=== PATIENT | male | born 1935 | race Caucasian/White ===

== ENCOUNTER → 2018-03-29 | Outpatient (CLI) | payer OTHER, MEDICARE | LOC: BMCIMAGING 09:00 | DX: I77.89 Other specified disorders of arteries and arterioles (principal); R09.89 Other specified symptoms and signs involving the circulatory and respiratory systems; R42 Dizziness and giddiness; I25.10 Atherosclerotic heart disease of native coronary artery without angina pectoris; I10 Essential (primary) hypertension; F17.210 Nicotine dependence, cigarettes, uncomplicated; Z95.5 Presence of coronary angioplasty implant and graft ==

== ENCOUNTER → 2018-04-05 | Outpatient (CLI) | payer OTHER, MEDICARE ==
[~2018-04-05] MED LIST: IOPAMIDOL (ISOVUE 370) 100 ML BTL IV ONE
== END ==
LOC: FIMAGING 14:50
DX: I65.23 Occlusion and stenosis of bilateral carotid arteries (principal)
CPT/HCPCS: 70498; Q9967

== ENCOUNTER 2019-02-28 16:49 | Inpatient (IN) | payer OTHER, MEDICARE ==
--- NOTE | 2019-02-28 17:08 | EDPHY ---
H & P Stated Complaint: R calf pain and SOB x5D. Hx COPD. Denies CP. Time Seen by Provider: 02/28/19 17:06 HPI/ROS: Chief complaint: Right calf pain, Difficulty breathing History of present illness: This is an 83-year-old male with a history of COPD and cardiovascular disease who presents to the emergency department for right calf pain and trouble breathing. Patient reports approximately 5 days ago he developed a right calf pain. It has been progressively worsening. He has associated redness and swelling into the leg. He has subsequently developed the trouble breathing. Symptoms have been progressively worsening. He did go see his primary care doctor today who sent him to the emergency room. He denies associated signs or symptoms including no fevers or cold symptoms. Although he has had COPD exacerbations in the past this does not feel similar to them. He normally uses oxygen at night but does not need it during the day. Review of systems: A 10 point review of systems was obtained and other than described above was negative. - Personal History Current Tetanus/Diphtheria Vaccine: Yes - Medical/Surgical History Hx Asthma: No Hx Chronic Respiratory Disease: Yes Hx Diabetes: No Hx Cardiac Disease: Yes Hx Renal Disease: No Hx Cirrhosis: No Hx Alcoholism: No Hx HIV/AIDS: No Hx Splenectomy or Spleen Trauma: No Other PMH: PMH: High Cholesterol, HTN, Heart Stent, COPD - Social History Smoking Status: Heavy smoker - Physical Exam Exam: General Appearance: Alert, nontoxic, easily conversant. Eyes: Pupils equal and round no pallor or injection. ENT, Mouth: Mucous membranes moist. Respiratory: Patient is talking in full sentences. There is no use of accessory muscles. Diffuse rhonchi and wheezing throughout the lung brown. Cardiovascular: Regular rate and rhythm. Gastrointestinal: Abdomen is soft and non tender, no masses, bowel sounds normal. Neurological: Alert and oriented. Skin: Erythema and edema to the right lower extremity. Musculoskeletal: Neck is supple non tender. Extremities are symmetrical, full range of motion. Psychiatric: Patient is oriented X 3, there is no agitation. Constitutional: Initial Vital Signs Temperature (C) 37.6 C 02/28/19 16:54 Heart Rate 102 H 02/28/19 16:54 Respiratory Rate 18 02/28/19 16:54 Blood Pressure 132/59 H 02/28/19 16:54 O2 Sat (%) 82 L 02/28/19 16:54 O2 Delivery Mode Room Air O2 (L/minute) 3 Allergies/Adverse Reactions: Penicillins Allergy (Mild, Verified 02/28/19 20:05) Home Medications: Medication Instructions Recorded Clopidogrel Bisulfate [Plavix (*)] 75 mg PO DAILY 08/28/16 Furosemide [Lasix 40 MG (*)] 40 mg PO DAILY 08/28/16 Lisinopril [Zestril 40 mg (*)] 40 mg PO DAILY 08/28/16 Metoprolol Succinate Xr [Toprol Xl 75 mg PO DAILY 08/28/16 50 mg (*)] PARoxetine HCL [Paxil 30mg (*)] 30 mg PO DAILY 08/28/16 amLODIPine BESYLATE [Norvasc 5 mg 5 mg PO DAILY 08/28/16 (*)] Atorvastatin Calcium [Lipitor 40 40 mg PO DAILY 02/28/19 mg (*)] Fluticasone/Umeclidin/Vilanter 1 each IH DAILY 02/28/19 [Trelegy Ellipta 100-62.5-25] Ipratropium 0.03% Nasal [Atrovent 2 sprays EACHNARE BID 02/28/19 0.03% Nasal (*)] Multivitamins [Multivitamin (*)] 1 each PO DAILY 02/28/19 predniSONE 5 mg PO EVERY OTHER DAY 02/28/19 Medical Decision Making - Diagnostics Imaging Results: Imaging Impressions Chest/Thorax CTA 02/28/19 17:15 Impression: 1. Negative CT examination of the chest for acute pulmonary thromboembolic disease. 2. 16 mm spiculated right middle lobe nodule suspicious for primary lung malignancy. 3. Noncalcified focus of pleural thickening involving the right major fissure, indeterminate for benign or malignant etiology. 4. Endobronchial obstructive changes within the right lower lobe bronchus, mass versus retained secretions. 5. Abnormal right paraesophageal and right hilar lymphadenopathy, potentially metastatic. 6. Underlying emphysema. 7. Bilateral lower lobe atelectasis. 8. Probable fusiform adrenal hyperplasia bilaterally. Results called to Joni Concepcion PA-C, at 6:30 PM. Results called to [ ] at the time of the interpretation.. Imaging: Discussed imaging studies w/ call taker Radiologist ED Course/Re-evaluation: Patient is discussed with my secondary supervising physician Dr. Isa Birch. Patient presents to the emergency department with right foot and leg pain as well as shortness of breath and hypoxia. Evaluation ultimately reveals he appears to have a right leg cellulitis. I also suspected COPD exacerbation. He also appears to have new onset lung cancer. No thromboembolic disease noted at this time. No evidence of sepsis, lactate is normal. He is given a DuoNeb and Solu-Medrol for COPD and started on Ancef. He is admitted to the hospitalist service under the care of Dr. Radha Garcia. Dr. Shan Jacobsen of Hematology/Oncology will consult on this patient for new diagnosis of lung cancer. The plan has been discussed with the patient voiced understanding and agreement with it. Differential Diagnosis: Included but not limited to DVT, PE, COPD exacerbation, pneumonia, cellulitis, pneumothorax, malignancy - Data Points Laboratory Results: Laboratory Results 02/28/19 17:30 02/28/19 17:30 02/28/19 02/28/19 02/28/19 18:29 17:36 17:30 WBC RBC Hgb POC Hgb 15.0 gm/dL gm/dL (13.7-17.5) Hct POC Hct 44 % % (40-51) MCV MCH MCHC RDW Plt Count MPV Neut % (Auto) Lymph % (Auto) [place] % (Auto) Eos % (Auto) Baso % (Auto) Nucleat RBC Rel Count Absolute Neuts (auto) Absolute Lymphs (auto) Absolute Monos (auto) Absolute Eos (auto) Absolute Basos (auto) Absolute Nucleated RBC Immature Gran % Immature Gran # PT 13.7 SEC SEC (12.0-15.0) INR 1.09 (0.83-1.16) APTT 36.9 SEC SEC (23.0-38.0) POC Sodium 139 mEq/L mEq/L (135-145) Sodium POC Potassium 3.4 mEq/L mEq/L (3.3-5.0) Potassium POC Chloride 99 mEq/L mEq/L (97-110) Chloride Carbon Dioxide POC Total CO2 28 mEq/L mEq/L (22-31) Anion Gap POC BUN 26 mg/dL H mg/dL (7-23) BUN Creatinine POC Creatinine 0.9 mg/dL mg/dL (0.7-1.3) Estimated GFR Glucose POC Glucose 108 mg/dL H mg/dL (70-100) Calcium Total Bilirubin 0.5 mg/dL mg/dL (0.1-1.4) POC Troponin I NT-Pro-B Natriuret Pep 02/28/19 02/28/19 02/28/19 17:30 17:30 17:29 WBC 11.25 10^3/uL H 10^3/uL (3.80-9.50) RBC 4.41 10^6/uL 10^6/uL (4.40-6.38) Hgb 14.4 g/dL g/dL (13.7-17.5) POC Hgb Hct 42.1 % % (40.0-51.0) POC Hct MCV 95.5 fL fL (81.5-99.8) MCH 32.7 pg pg (27.9-34.1) MCHC 34.2 g/dL g/dL (32.4-36.7) RDW 13.4 % % (11.5-15.2) Plt Count 159 10^3/uL 10^3/uL (150-400) MPV 9.7 fL fL (8.7-11.7) Neut % (Auto) 80.7 % H % (39.3-74.2) Lymph % (Auto) 7.5 % L % (15.0-45.0) [place] % (Auto) 8.5 % % (4.5-13.0) Eos % (Auto) 2.3 % % (0.6-7.6) Baso % (Auto) 0.4 % % (0.3-1.7) Nucleat RBC Rel Count 0.0 % % (0.0-0.2) Absolute Neuts (auto) 9.08 10^3/uL H 10^3/uL (1.70-6.50) Absolute Lymphs (auto) 0.84 10^3/uL L 10^3/uL (1.00-3.00) Absolute Monos (auto) 0.96 10^3/uL H 10^3/uL (0.30-0.80) Absolute Eos (auto) 0.26 10^3/uL 10^3/uL (0.03-0.40) Absolute Basos (auto) 0.04 10^3/uL 10^3/uL (0.02-0.10) Absolute Nucleated RBC 0.00 10^3/uL 10^3/uL (0-0.01) Immature Gran % 0.6 % % (0.0-1.1) Immature Gran # 0.07 10^3/uL 10^3/uL (0.00-0.10) PT INR APTT POC Sodium Sodium 137 mEq/L mEq/L (135-145) POC Potassium Potassium 3.6 mEq/L mEq/L (3.5-5.2) POC Chloride Chloride 100 mEq/L mEq/L (97-110) Carbon Dioxide 28 mEq/l mEq/l (22-31) POC Total CO2 Anion Gap 9 mEq/L mEq/L (6-14) POC BUN BUN 29 mg/dL H mg/dL (7-23) Creatinine 0.9 mg/dL mg/dL (0.7-1.3) POC Creatinine Estimated GFR > 60 Glucose 105 mg/dL H mg/dL (70-100) POC Glucose Calcium 8.9 mg/dL mg/dL (8.5-10.4) Total Bilirubin POC Troponin I 0.00 ng/mL ng/mL (0.00-0.08) NT-Pro-B Natriuret Pep 841 pg/mL H pg/mL (0-450) Medications Given: Discontinued Medications Albuterol/Ipratropium (Duoneb) 3 ml IH EDNOW ONE Stop: 02/28/19 18:41 Last Admin: 02/28/19 19:13 Dose: 3 ml Cefazolin Sodium/Dextrose (Ancef) 100 mls @ 200 mls/hr IV EDNOW ONE PRN Reason: Protocol Stop: 02/28/19 19:06 Last Admin: 02/28/19 19:13 Dose: 100 mls Methylprednisolone Sodium Succinate (Solu-Medrol) 125 mg IVP EDNOW ONE Stop: 02/28/19 18:41 Last Admin: 02/28/19 19:13 Dose: 125 mg Point of Care Test Results: Chemistry 02/28/19 02/28/19 17:36 17:29 POC Sodium 139 mEq/L mEq/L (135-145) POC Potassium 3.4 mEq/L mEq/L (3.3-5.0) POC Chloride 99 mEq/L mEq/L (97-110) POC Total CO2 28 mEq/L mEq/L (22-31) POC BUN 26 mg/dL H mg/dL (7-23) POC Creatinine 0.9 mg/dL mg/dL (0.7-1.3) POC Glucose 108 mg/dL H mg/dL (70-100) POC Troponin I 0.00 ng/mL ng/mL (0.00-0.08) ISTAT H&H 02/28/19 17:36 POC Hgb 15.0 gm/dL gm/dL (13.7-17.5) POC Hct 44 % % (40-51) Departure - Departure Disposition: [facility] In[facility] Acute Clinical Impression: COPD exacerbation Lung cancer Qualifiers: Laterality: right Lung location: middle lobe of lung Qualified Code(s): C34.2 - Malignant neoplasm of middle lobe, bronchus or lung Cellulitis Qualifiers: Site of cellulitis: extremity Site of cellulitis of extremity: lower extremity Laterality: right Qualified Code(s): L03.115 - Cellulitis of right lower limb Condition: Fair
[2019-02-28 17:45] LABS: PLATELET COUNT 159 10^3/uL (150-400)
[2019-02-28] MEDS ORDERED: IOPAMIDOL (ISOVUE 370) 100 ML BTL IV ONE (17:50)
[2019-02-28 18:37] LABS: INR 1.09 (0.83-1.16); PROTIME(PATIENT) 13.7 SEC (12.0-15.0)
[2019-02-28] MEDS ORDERED: ceFAZolin 2 GM/DEXTROSE 100 ML IV ONE (18:37)
[2019-02-28] MEDS ORDERED: methylPREDNISolone SOD SUCC 125 MG/2 ML VIAL IVP ONE (18:40)
[2019-02-28] MEDS ORDERED: IPRATROPIUM/ALBUTEROL 3 ML DEYVIAL IH ONE (18:40)
[2019-02-28] MEDS ORDERED: ONDANSETRON 4 MG/2 ML VIAL IVP PRN (19:28)
[2019-02-28] MEDS ORDERED: ACETAMINOPHEN 325 MG TAB PO PRN (19:28)
[2019-02-28] MEDS ORDERED: ONDANSETRON DISINTEGRATING 4 MG TAB PO PRN (19:28)
--- NOTE | 2019-02-28 21:13 | CPEKG ---
Test Reason : OPEN Blood Pressure : / mmHG Vent. Rate : 095 BPM Atrial Rate : 096 BPM P-R Int : 189 ms QRS Dur : 089 ms QT Int : 364 ms P-R-T Axes : 077 051 072 degrees QTc Int : 458 ms Sinus rhythm Confirmed by Viki Birch ([id number]) on 02/28/2019 9:11:06 PM Referred By: VIKI BIRCH Confirmed By:Viki Birch
[2019-02-28] MEDS ORDERED: IPRATROPIUM/ALBUTEROL 3 ML DEYVIAL IH PRN (21:52)
--- NOTE | 2019-02-28 22:48 | GHP ---
[f rep st] HISTORY AND PHYSICAL DATE OF ADMISSION: 02/28/2019 CHIEF COMPLAINT: Right leg cellulitis, shortness of breath. HISTORY OF PRESENT ILLNESS: An 83-year-old male with tobacco dependence, COPD, chronic hypoxemic respiratory failure on 2.5 L at night, presents with right foot calf pain and trouble breathing. He developed right calf pain 5 days ago. When he applied pressure on his foot, it felt like glass. He has noticed that it is more swollen and red. Denies fevers, chills, or sweats. Per ER notes, patient reported shortness of breath, but it was difficult to get this story from the patient. says over the last couple days he has been more dyspneic with walking. Denies chest pain. Has a chronic cough with yellow sputum. This has not changed. REVIEW OF SYSTEMS: I completed a 10-point review of systems, negative except as noted in HPI. PAST MEDICAL HISTORY: COPD, hypertension, CAD, prior stents. PAST SURGICAL HISTORY: Cardiac stents. FAMILY HISTORY: Dad with [place]. Mother with [place]. SOCIAL HISTORY: Lives in [place] with his . Smokes a pack a day, for 60 years, still smoking. 2-3 beers a day. Used to work in real estate. HOME MEDICATIONS: Multivitamin, Trelegy Ellipta 1 inhaled daily, Norvasc 5 mg daily, Atrovent, lisinopril 40 daily, Lasix 40 mg daily, Plavix 75 daily, paroxetine 30, metoprolol 75 daily, atorvastatin 40. ALLERGIES: Penicillin. PHYSICAL EXAMINATION: VITAL SIGNS: Temperature 36.8, blood pressure 123/67, heart rate is in the 90s, respirations 18, 82% on room air, 91 on 2 L. GENERAL : Overweight male in no acute distress. HEENT: PERRLA. Moist mucous membranes. CV: Mild expiratory wheeze. No crackles. ABDOMEN: Obese, soft, nontender. : No Romero. MUSCULOSKELETAL: Right leg with significant erythema from foot to knee. There is a sloughed-off ulcer dorsum of foot, appears warm, tender to touch, swollen. Serosanguineous drainage. NEURO: 2 through 12 intact. PSYCH: Alert and oriented x3. LABORATORY DATA: WBC 11, hemoglobin 14, hematocrit 42, platelets 159. Coags within normal. Lactate 0.9. Sodium 139, potassium 3.4, chloride 99, BUN 26, creatinine 0.9, glucose 108. BNP is 841. Troponin 0.00. CTA: Negative PE. 16 mm spiculated right middle lobe nodule, noncalcified focus of pleural thickening involving the right major fissure, abnormal right paraesophageal and right hilar lymphadenopathy, underlying emphysema. ASSESSMENT AND PLAN: 1. Right leg cellulitis: I will treat with Ancef 2 g q.8 given weight, elevate. 2. COPD: Per my interview, patient denies progressive shortness of breath. says otherwise. Will add DuoNeb, increase home steroid from 5 to 40 mg for 5 days. Does not warrant antibiotics given unchanged sputum production. He is stable on his home oxygen. 3. Chronic hypoxemic respiratory failure, uses at night but suspect he is actually low during the day. 4. Hypertension: Resume home medications. 5. Coronary artery disease: Statin, beta yeimy. 6. Deep venous thrombosis prophylaxis: Lovenox. 7. Diet: Regular. DISPOSITION: Inpatient admission for acute right leg cellulitis warranting IV antibiotics. /[id number]/MODL MTDD
[2019-03-01] MEDS: ceFAZolin 2 GM/DEXTROSE 100 ML IV SCH ×3 (03:09→18:33)
[2019-03-01] MEDS ORDERED: FUROSEMIDE 40 MG TAB PO SCH (09:00)
--- NOTE | 2019-03-01 09:03 | HOSPPROG ---
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 with suspected pulmonary hypertension (all new diagnosis for him at this time) * Spiculated lung lesion noted and right upper lobe on CT scan suspicious for cancer (new diagnosis for him today) * Pre renal azotemia likely due to poor cardiac perfusion of the kidneys from Pulmonary hypertension right heart failure * History of coronary disease * Hypertension PLANS: * I reviewed all the above with the patient in detail * Continue antibiotics and leg elevation, wound care * Will begin IV diuretics; will need to follow electrolytes on that * 2 g sodium diet * Long discussion with the patient today regarding preventive care for stasis dermatitis/ulcers/infection * Will consult pulmonology to consider bronchoscopy for the right lung lesion; if they can't get to that part of lung will need to consider other diagnostic approaches - this is very central in the lung and may not be very minimal to needling, could need a surgery * Strongly recommend that he have Dr. Austin refer him to outpatient pulmonary rehabilitation clinic Seen by me on hospitalist rounds as well as multidisciplinary rounds today SUBJECTIVE: Leg feels better today Says his breathing feels as usual OBJECTIVE Vitals reviewed: Mild occasional high blood pressure otherwise all stable without fever Exam: alert oriented skin warm dry color ok resps not labored lungs diminished breath sounds with diffuse expiratory wheeze heart regular abd soft nondistended nontender, bowel sounds present limbs warm, significant pitting edema present in both legs; there is still notable cellulitis of the right leg with no decrease in the area involved as of yet iv site ok Microbiology: Blood cultures pending Lab data: Imaging: I have reviewed images from his CT chest done yesterday, there is an obvious spiculated lung lesion in the midportion of the right upper lobe, some large airways disease and emphysema are noted as well as some basilar atelectasis Objective: Vital Signs Temp Pulse Resp BP Pulse Ox 36.4 C 94 16 129/65 H 94 03/01/19 08:34 03/01/19 08:34 03/01/19 08:34 03/01/19 08:34 03/01/19 08:34 02/28/19 03/01/19 03/02/19 06:59 06:59 06:59 Intake Total 565 Balance 565 PT 13.7 SEC (12.0-15.0) 02/28/19 18:29 INR 1.09 (0.83-1.16) 02/28/19 18:29 ICD10 Worksheet Patient Problems: Problems Problem Status Onset COPD exacerbation Acute Cellulitis Acute Lung cancer Acute
[2019-03-01] MEDS: ENOXAPARIN 40 MG/0.4 ML SYR SC SCH (09:22)
[2019-03-01] MEDS: LISINOPRIL 40 MG TAB PO SCH (09:23)
[2019-03-01] MEDS: amLODIPine BESYLATE 5 MG TAB PO SCH (09:23)
[2019-03-01] MEDS: MULTIVITAMINS 1 EACH TAB PO SCH (09:23)
[2019-03-01] MEDS: predniSONE 20 MG TAB PO SCH (09:23)
[2019-03-01] MEDS: CLOPIDOGREL BISULFATE 75 MG TAB PO SCH (09:24)
[2019-03-01] MEDS: ATORVASTATIN CALCIUM 40 MG TAB PO SCH (09:24)
[2019-03-01] MEDS: METOPROLOL SUCCINATE XR 50 MG TAB PO SCH (09:24)
[2019-03-01] MEDS ORDERED: FUROSEMIDE 20 MG/2 ML VIAL IVP ONE (09:29)
--- NOTE | 2019-03-01 09:33 | ASMTCASEMG ---
Living Arrangements What is your living Answers: With Spouse arrangement? Who do you live with? Type Of Residence What kind of residence do Answers: House you live in? Discharge Plan Comments Coordination Status Comments Notes: Patient is an 83yo male, pack a day smoker for 60 years with hx of COPD, hypertension, CAD, prior stents. Patient presents with right leg cellulitis and shortness of breath. He is being admitted for hypertension, chronic hypoxemic respiratory failure, COPD, CAD, DVT, and right leg cellulitis requiring IV ABX. No therapies ordered at this time. Patient has PCP: Josy Sheridan. D/C plan TBD. CM will follow. Date Signed: 03/01/2019 09:31 AM Electronically Signed By:Stephenie Mayberry LCSW
--- NOTE | 2019-03-01 11:54 | GCON ---
[f rep st] CONSULTATION MEDICAL ONCOLOGY CONSULTATION Patient is an 83-year-old male with a long smoking history who was admitted with a complaint of some increased shortness of breath, and right foot and calf pain. He was felt to have a cellulitis of his right foot and calf, and a CT angiogram showed a 16 mm spiculated right middle lobe nodule suspicious for a primary lung malignancy. There were endobronchial obstructive changes within the right lower lobe bronchus, felt to be either a mass versus retained secretion, and there were some abnormal right paraesophageal and right hilar lymphadenopathy noted, there was a 17 mm lymph node in the right hilum and there was an enlarged right paraesophageal lymph node below the robin measuring 19 mm. He was placed on Ancef and his foot is feeling better. PAST MEDICAL HISTORY: Significant for COPD, hypertension, coronary artery disease with prior stents. He has a 60 pack-year smoking history and continues to smoke. MEDICATIONS ON ADMISSION: Included Norvasc, Atrovent, Lasix, Plavix, paroxetine , metoprolol, and atorvastatin. FAMILY HISTORY: Noncontributory. He is retired from [employer]. There is a history of coronary artery disease. REVIEW OF SYSTEMS: Weight has actually been increased. He denies any pain. Otherwise, negative for 10 systems, except as discussed in the HPI. PHYSICAL EXAMINATION: GENERAL: Currently, he is resting comfortably. VITAL SIGNS: Blood pressure 129/65, O2 sat is 94%, temperature is 97.5. HEENT: He is not icteric. I detect no adenopathy. LUNGS: Show somewhat diminished breath sounds. CARDIAC: Normal S1, S2 without murmurs, clicks, or added sounds. ABDOMEN: Shows normal bowel sounds. Nontender. EXTREMITIES: Show no edema. LABORATORY DATA: White count is 11,000, hemoglobin 14.4, platelets a 159,000, hematocrit 42.1. Chemistry panel is generally unremarkable. Transaminases as of a few months ago are unremarkable. IMPRESSION: Patient with long smoking history and a spiculated lung lesion, concerning for primary lung cancer. There may also be some suspicious hilar and mediastinal lymph nodes. PLAN: For Pulmonary consultation regarding possible bronchoscopy, I have also asked Radiology to consider whether or not this is very central lesion surrounded by blood vessels would be amenable to a CT direct needle biopsy if we need a diagnosis. I think a PET scan would be reasonable as an outpatient. Our service will follow with you. /[id number]/MODL MTDD
--- NOTE | 2019-03-01 14:58 | PDMN ---
Medical Necessity Medical necessity: Pt meets IP criteria per MD & MCG M-70; est los >2 mn for eval/tx of acute R leg cellulitis, acute on chronic COPD exacerbation & new diagnosis CHF w/suspected pulmonary htn; lung lesion suspicious of cancer noted on CT; admit for further workup/monitoring, IV abx, IV diuretics & respiratory supportive care; per progress note & order 02/28/19
[2019-03-01] MEDS: FUROSEMIDE 40 MG/4 ML VIAL IVP SCH (15:11)
--- NOTE | 2019-03-01 18:51 | GCON ---
[f rep st] CONSULTATION PULMONARY CONSULTATION DATE OF CONSULTATION: 03/01/2019 REASON FOR CONSULTATION: Lung nodules in a smoker, COPD. HISTORY: The patient is a very pleasant 83-year-old gentleman with a long history of tobacco abuse. He continues to smoke actively. He has a history of known COPD and is followed by Dr. Bailon in [facility]. He was admitted to the hospital yesterday with cellulitis of the right lower extremity. A CT angiogram was done for shortness of breath. This showed a nodule in the right middle lobe and a nod ule with peribronchial obstructive changes in the right lower lobe consistent with a small mass. The se changes are worrisome for malignancy. In addition, there is some right hilar and paraesophageal l ymphadenopathy under 2 cm. Since admission, he has felt better with treatment for his cellulitis. Associated edema has been dec reasing. He states that he does not feel he has been particularly increasingly short of breath latel y. Apparently, this was reported by his . He does feel today, he is having a more difficult flavia e breathing because he has not been using the nasal ipratropium bromide. PAST MEDICAL HISTORY: Remarkable for COPD, ongoing tobacco abuse, systemic hypertension, coronary ar [place] disease with stenting in the past. OUTPATIENT MEDICATIONS: Include: Nasal Atrovent, Trelegy Ellipta one inhalation per day, lisinopril , Lasix, Plavix, Paxil, metoprolol, prednisone 5 mg every other day, and Lipitor. He has been receiv ing DuoNeb in the hospital, but only p.r.n. SOCIAL HISTORY: The patient is . Continues to smoke. FAMILY HISTORY: Noncontributory. REVIEW OF SYSTEMS: A 10-point review of systems is negative except as mentioned in the HPI. PHYSICAL EXAMINATION: GENERAL: Reveals a pleasant gentleman who is lying comfortably in bed. Feet are elevated. The right leg is wrapped. Nasal cannula oxygen is in place at 2 L. Saturations are 9 5%. He is not in any respiratory distress. HEENT: Unremarkable for lymphadenopathy or thyromegaly. There is no obvious jugular venous distention. PULMONARY: The chest reveals decreased breath soun ds bilaterally with a prolonged expiratory phase. Expiratory wheezes are heard bilaterally. He is n ot tight. With cough, there is some central bronchial congestion. HEART: Regular in rate and rhyth m. Heart tones are distant. No obvious gallop is noted. ABDOMEN: Soft and nontender. Bowel sound s are present. EXTREMITIES: Are as described above. NEUROLOGIC: Examination is intact. DATABASE: CT scan of the chest is as noted above. Laboratory: White blood cell count 11,200, hematocrit 44, platelets 159,000. PT and PTT on admissio n were normal. Sodium is 139, potassium 3.4, CO2 99, BUN 26, with creatinine 0.9, glucose 108. ASSESSMENT: 1. Pulmonary nodules. The appearance is as described above, with somewhat worrisome lesions in the right middle lobe and right lower lobe. Right-sided and mediastinal adenopathy is also present. Bro nchoscopy will be required. I have discussed this with the patient. Either myself, or his primary p ulmonologist, Dr. Bailon, in [place], can do this procedure. I have discussed this with the patient , and will discuss this with Dr. Bailon when he is available tomorrow. For the time being, I will pl an on the possibility of bronchoscopy under fluoroscopic guidance tomorrow and discuss this again wit h the patient in the morning. 2. Chronic obstructive pulmonary disease. Inhaled medications will be continued. The patient's wif e can bring in his nasal ipratropium bromide. This can be used four times daily. 3. Right lower extremity cellulitis. Improving on cefazolin. Enoxaparin will be held. Plavix will be held. All other medications will be continued. The patient will be allowed to have clear liquids in the morning, then he will be kept n.p.o. for pos sible bronchoscopy. Further plans and recommendations will be made based on his progress over the next 12 to 24 hours, an d on the findings of bronchoscopy. Copy requested to: René Bailon MD [place], [place] /[id number]/MODL
[2019-03-02] MEDS: ceFAZolin 2 GM/DEXTROSE 100 ML IV SCH ×3 (03:25→18:40)
[2019-03-02] MEDS: LISINOPRIL 40 MG TAB PO SCH (08:10)
[2019-03-02] MEDS: METOPROLOL SUCCINATE XR 50 MG TAB PO SCH (08:10)
[2019-03-02] MEDS: amLODIPine BESYLATE 5 MG TAB PO SCH (08:10)
[2019-03-02] MEDS: predniSONE 20 MG TAB PO SCH ×2 (08:10→08:24)
[2019-03-02] MEDS: MULTIVITAMINS 1 EACH TAB PO SCH (08:10)
[2019-03-02] MEDS: ATORVASTATIN CALCIUM 40 MG TAB PO SCH (08:10)
[2019-03-02] MEDS: FUROSEMIDE 40 MG/4 ML VIAL IVP SCH ×2 (08:12→16:34)
--- NOTE | 2019-03-02 09:51 | SOAPPROG ---
SOAP Progress Note Assessment/Plan: Assessment: 1.Copd 2. pulmonary nodule 3. LE cellulitis Plan:Bronch today, antibiotics per hospital team. If not diagnostic could consider outpt pet 03/02/19 09:49 Subjective: Feels better Objective: Vital Signs Temp Pulse Resp BP Pulse Ox 97.8 F 76 16 144/80 H 88 L 03/02/19 07:21 03/02/19 07:21 03/02/19 07:21 03/02/19 08:10 03/02/19 07:21 03/01/19 03/02/19 03/03/19 05:59 05:59 05:59 Intake Total 565 100 Output Total 1000 Balance 565 -900 PT 13.7 SEC (12.0-15.0) 02/28/19 18:29 INR 1.09 (0.83-1.16) 02/28/19 18:29 ICD10 Worksheet Patient Problems: Problems Problem Status Onset COPD exacerbation Acute Cellulitis Acute Chronic Disease Mgmt/Transitional Care Acute Lung cancer Acute
[2019-03-02] MEDS ORDERED: LIDOCAINE 1% 300 MG/30 ML SDV ONE (11:50)
[2019-03-02] MEDS ORDERED: LIDOCAINE 2% JELLY 6 ML TOPICAL SYR ONE (11:51)
[2019-03-02] MEDS ORDERED: EPINEPHrine 1 MG/10 ML SYR IVP ONE (11:51)
[2019-03-02] MEDS ORDERED: ALBUTEROL 3 ML DEYVIAL ONE (11:52)
[2019-03-02] MEDS ORDERED: NICOTINE 14 MG/24 HR PATCH TD PRN (12:06)
[2019-03-02] MEDS ORDERED: MIDAZOLAM 2 MG/2 ML VIAL ONE (14:11)
[2019-03-02] MEDS ORDERED: fentaNYL 100 MCG/2 ML INJ ONE (14:12)
[2019-03-02] MEDS ORDERED: NS 500 ML IV ONE (14:12)
--- NOTE | 2019-03-02 15:40 | PDPROPOC ---
Sedation Plan of Care Sedation Plan of Care: vital signs stable, mental status noted, patient educated of risks, benefits, alternatives, patient can tolerate sedation ASA Classification: ASA 2 Planned drugs: fentanyl, midazolam Mallampati Score: Class 2 Mallampati Reference Image: Patient passed 3-3-2 rule?: Yes
--- NOTE | 2019-03-02 18:35 | GPN ---
[f rep st] PROCEDURE NOTE DATE OF PROCEDURE: 03/02/2019 REASON FOR PROCEDURE: Pulmonary nodules, masses related to the right lung in a long-time smoker. Fi ndings are worrisome for malignancy. PROCEDURE NOTE: The procedure was performed in the endoscopy unit. Informed consent was obtained fr om the patient. Appropriate time-out was performed. 5 mL of 0.25% lidocaine was used to anesthetize the oropharynx and 20 mL of 1% lidocaine used to anesthetize the vocal cords and lower tracheobronch ial tree. A total of 4 mg of Versed and 100 mcg of fentanyl was used intravenously for conscious sed ation. The fiberoptic bronchoscope was passed via bite block orally in the larynx. The vocal cords were lauren ntified, anesthetized and cannulated. The scope was advanced into the trachea and into the lower tra cheobronchial tree bilaterally. All areas were observed to at least the first subsegmental level. A natomy was normal on the left side. The trachea appeared normal. There were at least moderate secre tions, somewhat purulent, found bilaterally consistent with COPD and ongoing tobacco use. These were removed with suction and lavage. The right upper lobe appeared normal. The left middle lobe appear ed normal. I was able to see into the medial segment. There was no evidence of extrinsic compressio n, narrowing, or endobronchial abnormalities. Brushes and lavage samples were obtained from this are a. In the right lower lobe, the segmental robin were somewhat thickened. There were no endobronchi al abnormalities. There was modest edema. Extrinsic compression could not be excluded. Brushes, wa shes and lavage samples were obtained from right lower lobe segmental bronchi and combined. The patient tolerated the procedure well. Oxygen saturations remained stable on supplemental oxygen. Vital signs were stable throughout. ASSESSMENT: 1. Moderate secretions consistent with chronic obstructive pulmonary disease and ongoing tobacco abu se. Anaerobic culture was sent. 2. Normal medial segment of the right middle lobe. 3. Edema and some nonspecific widening of subcarina related to the right lower lobe. No evidence of definite malignancy. [place] biopsy samples were obtained. Copy requested to: NNAMDI SAENZ MD /[id number]/MODL
[2019-03-03] MEDS: ceFAZolin 2 GM/DEXTROSE 100 ML IV SCH ×2 (02:36→10:27)
[2019-03-03] MEDS: MULTIVITAMINS 1 EACH TAB PO SCH (09:27)
[2019-03-03] MEDS: predniSONE 20 MG TAB PO SCH (09:27)
[2019-03-03] MEDS: CLOPIDOGREL BISULFATE 75 MG TAB PO SCH (09:28)
[2019-03-03] MEDS: amLODIPine BESYLATE 5 MG TAB PO SCH (09:28)
[2019-03-03] MEDS: FUROSEMIDE 40 MG/4 ML VIAL IVP SCH (09:28)
[2019-03-03] MEDS: LISINOPRIL 40 MG TAB PO SCH (09:28)
[2019-03-03] MEDS: ATORVASTATIN CALCIUM 40 MG TAB PO SCH (09:28)
[2019-03-03] MEDS: METOPROLOL SUCCINATE XR 50 MG TAB PO SCH (09:29)
[2019-03-03] MEDS: ENOXAPARIN 40 MG/0.4 ML SYR SC SCH (09:29)
--- NOTE | 2019-03-03 10:14 | WOCRNPDOC ---
WOCRN Advanced Assessment Note - Skin Integrity Problem, Advanced Assess Right Lower Leg Dressing Type: Allevyn Life Dressing Description: Clean/Dry, Intact Exudate Characteristic(s): None Integumentary Issue Intervention: Visualized Under Dressing, Hydrogel Applied Sadaf Wound Tissue: Erythema (difuse), Swollen, Dry Sadaf Wound Swelling: Mild Wound Bed Constitution: Scab Site Measurement - Head-to-Toe Length X Width X Depth (cm): [id number] Skin Integrity Problem Comment: Tiny scabbed wound to Right mid marvin. Per patient "probably banged it somewhere". Cleaned with ns and gauze. Wound gel applied and recovered with Aleevyn life. Right Medial Foot Dressing Type: Allevyn Life Dressing Description: Intact Exudate Amount: Scant Exudate Color: Yellow, Red Integumentary Issue Intervention: Dressing Changed, Hydrogel Applied Sadaf Wound Tissue: Erythema (difuse), Swollen, Dry Sadaf Wound Swelling: Mild Wound Bed Color: Brown (60%), [place], White Wound Bed Constitution: Granulation Tissue (60%) Wound Edges: Attached Site Measurement - Head-to-Toe Length X Width X Depth (cm): 3x3x0.2 Skin Integrity Problem Comment: Wound presents as slightly oval popped blister with a creek shaped opening off center a bit distally. This open area looks like nicely granulating tissue. The other area appears to be a deflated blister however the tissue does not slide so seems to be reattaching to the wound base. Cleaned with ns and gauze. wound gel applied and covered with Allevyn life dressing. Will initiate antimicrobial wound healing with Silvasorb.
[2019-03-03 10:50] VITALS: BP 152/83
--- NOTE | 2019-03-03 11:34 | SOAPPROG ---
SOAP Progress Note Assessment/Plan: Assessment: 1.Copd 2. pulmonary nodule 3. LE cellulitis Plan: Bronchoscopy performed yesterday, no e/o definite malignancy- brush biopsy samples obtained- no results at this time. Will continue to follow for results of brush biopsy. If [place] biopsy in non-diagnostic will need outpatient PET scan. Unable to biopsy mass directly 2/2 central location and surrounding vasculature. Patient has follow-up already scheduled with Dr. Austin for 03/10 and outpatient PET can be ordered at that time, or patient can follow-up with [facility] if he desires. Cellulitis appears to be improvement, management and dispo planning per primary team. - Pending results of [place] biopsy. 03/02/19 09:49 03/03/19 11:29 Subjective: Reports significant improvement in swelling and redness of right leg. Tolerated bronchoscopy without difficulty, has no memory of procedure. Breathing is at baseline. Objective: Vital Signs Temp Pulse Resp BP Pulse Ox 97.6 F 78 18 152/83 H 94 03/03/19 08:28 03/03/19 09:29 03/03/19 08:28 03/03/19 10:49 03/03/19 08:28 Microbiology 03/02/19 14:55 Gram Stain - Final Bronchial Alveolar Lavage - Right Lower Lobe 03/02/19 03/03/19 03/04/19 05:59 05:59 05:59 Intake Total 100 700 Output Total 1000 1300 Balance -900 -600 PT 13.7 SEC (12.0-15.0) 02/28/19 18:29 INR 1.09 (0.83-1.16) 02/28/19 18:29 NAD Breathing non-labored Improved edema and erythema RLE Alert, pleasant, oriented x 3 ICD10 Worksheet Patient Problems: Problems Problem Status Onset COPD exacerbation Acute Cellulitis Acute Chronic Disease Mgmt/Transitional Care Acute Lung cancer Acute
--- NOTE | 2019-03-03 11:44 | PDDCSUM ---
Discharge Summary Discharge Summary: DISCHARGE DIAGNOSES: * Cellulitis of right lower leg with stasis abnormalities and chronic leg edema , 2 small ulcers * COPD exacerbation * Right-sided congestive heart failure * Suspected pulmonary hypertension * Newly identified right lung nodule middle lobe, 1.6 cm spiculated appearance; soft tissue density around more proximal airways of uncertain etiology may possibly be related; CONSULTANTS: Dr. Garry Jacobsen PROCEDURES: Fiberoptic bronchoscopy with airway secretions but no definite endobronchial lesions; lavage samples taken HOSPITAL COURSE SUMMARY: This patient with chronic leg edema was sent from primary care office to the hospital for right lower leg cellulitis. He was found to have evidence of market cellulitis of the right lower leg with 2 small ulcers no necrotic tissue and no evidence of deep tissue infection, but with significant bilateral leg edema from right-sided congestive heart failure. He has COPD and did have evidence of some mild COPD exacerbation at this time. There was no evidence of respiratory infection. Patient was treated with IV antibiotics, elevation of legs, low-salt diet and increase in Lasix dose. He had wound care for his open ulcers. With these measures his edema has nearly completely resolved, his cellulitis has nearly completely resolved, and his ulcers are improving nicely. He will need a couple more days of oral antibiotics and he will need ongoing wound care and measures for maintaining non edematous legs. He has had extensive education regarding management of the leg edema problem. In addition to all the above the patient had a CT scan of his chest here and there was identified a new 1.6 cm spiculated mass in the right middle lobe and some significant airway disease in the right middle lobe. A bronchoscopy was done but there were no identified endobronchial lesions to sample. A bronchoalveolar lavage was done with results of that pending. PENDING TEST RESULTS: Pathology from bronchoalveolar lavage MEDICATION CHANGES: Keflex 500 mg four times daily added for completion of cellulitis treatment Prednisone is on a taper, should take 20 mg upon discharge for 1 day followed by 10 mg daily, then to be tapered by pulmonology after that Lasix dose is increased to 40 mg daily INSTRUCTIONS: He is given wound care instructions for his leg He is instructed to maintain non edematous legs with a 2 g sodium diet as well as elevation of legs 3-4 times daily and when necessary use of compression stockings FOLLOW-UP PLAN: He will follow up with Dr. Josy Sheridan within 1 week He will be in contact with Dr. Garry Canada regarding results of his bronchoalveolar lavage, and Dr. Canada is making arrangements for that He will follow up with Dr. Jeanette Jacobsen with in 7-10 days regarding reassessment of his lavage findings, his CT scan findings, and may need future diagnostic studies such as PET or other biopsy procedure Greater than 35 minutes bedside and care coordination time today
--- NOTE | 2019-03-03 14:11 | ASMTLACE ---
LACE Length of stay for Answers: 3 days current admission Acuity / Level of Answers: Yes Care: Did the patient have an inpatient admission? Comorbidities - select Answers: Chronic pulmonary disease all that apply Coronary Artery Disease Other Notes: HTN # of Emergency department Answers: 1-2 visits in the last 6 months Score: 12 Date Signed: 03/03/2019 02:10 PM Electronically Signed By:Claudia Parikh RN
--- NOTE | 2019-03-03 14:12 | ASMTDCNOTE ---
Case Management Discharge Discharge Order Complete? Answers: Yes Patient to Obtain Answers: Independently Medications Transportation Arranged Answers: Family/Friends Family Notified Answers: Yes Discharge Comments Notes: Patient discharged home with his . He has instructions for wound care and feels comfortable with them. He will f/u with pulmonology and oncology. No other needs. Date Signed: 03/03/2019 02:11 PM Electronically Signed By:Claudia Parikh RN
--- NOTE | 2019-03-03 15:09 | SOAPPROG ---
SOAP Progress Note Assessment/Plan: Assessment: COPD. On appropriate medications. Pul Nodules/lesions with associated adenopathy, worrisome for malignancy. Status post bronchoscopy. Cellulitis: Resolving. Plan: Await bronchoscopy results/cytologies. I will discuss the results with him by phone on Thursday. He has follow-up arranged with his primary accounting officer, Dr. Austin, in [place] in one week. Discussed with Dr. Mcdowell and the patient. Subjective: Feels fairly well. Close to baseline. Denies increasing shortness of breath. Does have some wheezes, cough and congestion which is pretty much chronic. Objective: Vital Signs Temp Pulse Resp BP Pulse Ox 36.4 C 78 18 152/83 H 78 L 03/03/19 08:28 03/03/19 09:29 03/03/19 08:28 03/03/19 10:49 03/03/19 13:57 Microbiology 03/02/19 14:55 Gram Stain - Final Bronchial Alveolar Lavage - Right Lower Lobe 03/02/19 03/03/19 03/04/19 05:59 05:59 05:59 Intake Total 100 700 Output Total 1000 1300 Balance -900 -600 PT 13.7 SEC (12.0-15.0) 02/28/19 18:29 INR 1.09 (0.83-1.16) 02/28/19 18:29 Bronchoscopy samples pending Physical Exam - Physical Exam General Appearance: alert, no apparent distress, other (Up in chair) EENT: PERRL/EOMI, other (Nasal cannula oxygen in place at 2-3 L) Neck: normal inspection (No JVD) Respiratory: decreased breath sounds, rales (Few scattered rales bilaterally at the bases), rhonchi (Central congestion present with cough), wheezing ( Bilateral wheezes present, not tight), prolonged expiration Cardiac/Chest: regular rate, rhythm Skin: normal color, warm/dry Extremities: No pedal edema Neuro/Psych: no motor/sensory deficits, No cognition abnormalities ICD10 Worksheet Patient Problems: Problems Problem Status Onset Chronic Disease Mgmt/Transitional Care Acute COPD exacerbation Acute Lung cancer Acute Cellulitis Acute
== END 2019-03-03 15:19 | disposition home or self-care (01) | DRG 167 ==
LOC: F1N 21:43
PROVIDERS: ADMIT Internal Medicine; ATTEND Internal Medicine
DX: J44.1 Chronic obstructive pulmonary disease with (acute) exacerbation (principal); L03.115 Cellulitis of right lower limb; R91.8 Other nonspecific abnormal finding of lung field; J96.11 Chronic respiratory failure with hypoxia; I50.9 Heart failure, unspecified; I25.10 Atherosclerotic heart disease of native coronary artery without angina pectoris; I27.20 Pulmonary hypertension, unspecified; F17.210 Nicotine dependence, cigarettes, uncomplicated; Z95.5 Presence of coronary angioplasty implant and graft
CPT/HCPCS: 82435-PO; 82565-PO; 82947-PO; 84132-PO; 84295-PO; 84484-ER; 84520-PO; 85014-ER; 96365; J0690; J1650; J1940; J2250; J2930; J3010; J7512; J7613; Q9967